=== PATIENT | male | born 2000 | race Hispanic/Latino ===

== ENCOUNTER 2018-07-08 19:24 | Emergency (ER) | payer BC ==
[2018-07-08 19:28] VITALS: BP 144/59; PULSE 80; RESP 18; TEMP 98.6; O2SAT 100
[2018-07-08] MEDS ORDERED: Lidocaine 2% MPF (5 ml) Inj ONE (19:38)
--- NOTE | 2018-07-08 19:40 | ED PDOC ---
Upper Extremity Pain/Injury Time Seen by Provider: 07/08/18 19:25 Chief Complaint (Nursing): Finger,Hand,&Wrist History Per: Patient History/Exam Limitations: no limitations Onset/Duration Of Symptoms: Mins (prior to arrival) Current Symptoms Are (Timing): Still Present Quality: "Pain" Additional Complaint(s): 18 year old male presents to the ED with right, 5th digit dislocation that occurred minutes prior to arrival. Patient reports he was playing football and while trying to catch the ball, injured his finger. He writes with his left hand but uses his right for all other activities. Offers no other complaints. PMD: Past Medical History Reviewed: Historical Data, Nursing Documentation, Vital Signs Vital Signs: Last Vital Signs Temp 98.6 F 07/08/18 19:25 Pulse 80 07/08/18 19:25 Resp 18 07/08/18 19:25 BP 144/59 L 07/08/18 19:25 Pulse Ox 100 07/08/18 19:25 - Medical History PMH: No Chronic Diseases - Surgical History Surgical History: No Surg Hx - Family History Family History: States: Unknown Family Hx - Home Medications Home Medications: Ambulatory Orders Medication Instructions Recorded Ibuprofen [Motrin] 600 mg PO Q8 PRN #21 tab 07/08/18 - Allergies Allergies/Adverse Reactions: Allergies Allergy/AdvReac Type Severity Reaction Status Date / Time nuts Allergy ANAPHYLAXIS Uncoded 07/08/18 19:25 Review of Systems ROS Statement: Except As Marked, All Systems Reviewed And Found Negative Musculoskeletal: Positive for: Hand Pain (right hand pain and finger dislocation ) Physical Exam - Reviewed Nursing Documentation Reviewed: Yes Vital Signs Reviewed: Yes - Physical Exam Appears: Positive for: Non-toxic, No Acute Distress Head Exam: Positive for: ATRAUMATIC, NORMAL INSPECTION, NORMOCEPHALIC Skin: Positive for: Normal Color, Warm, Dry Eye Exam: Positive for: EOMI, Normal appearance, PERRL Neck: Positive for: Normal, Painless ROM, Supple Cardiovascular/Chest: Positive for: Regular Rate, Rhythm. Negative for: Murmur Respiratory: Positive for: Normal Breath Sounds. Negative for: Wheezing, Respiratory Distress Extremity: Positive for: Other (apparent dislocation noted at middle phalanx of 5th digit in right hand) Neurologic/Psych: Positive for: Alert, Oriented (x 3). Negative for: Motor/ Sensory Deficits - ECG O2 Sat by Pulse Oximetry: 100 (RA) Pulse Ox Interpretation: Normal - Progress ED Course And Treament: XRY REVIEWED. DISLOCATION OF MIDDLE PHALANX REDUCED. SMALL AVULSION FX NOTED BASE OF MIDDLE PHALANX FIFTH DIGIT PLACED IN FINGER SPLINT MOTRIN 600 MG X 1 DOSE IN ED Medical Decision Making Medical Decision Makin:30 Right hand: fifth digit dislocation --Verbal consent given prior to procedure --Dislocation reduced in ER with visible improvement. Orders: --Right hand 5th digit x-ray --Motrin 600 mg PO Scribe Attestation: Documented by Lavonne Santo, acting as a scribe for Leanne Willingham PA-C Provider Scribe Attestation: All medical record entries made by the Scribe were at my direction and personally dictated by me. I have reviewed the chart and agree that the record accurately reflects my personal performance of the history, physical exam, medical decision making, and the department course for this patient. I have also personally directed, reviewed, and agree with the discharge instructions and disposition. Disposition - Clinical Impression Clinical Impression: Fracture of finger, middle phalanx, right, closed, Rupture of tendon of finger , Closed dislocation of phalanx of hand - Patient ED Disposition Is Patient to be Admitted: No - Disposition Referrals: Darenll Beckwith MD [Staff Provider] - Floyd Mercado MD [Medical Doctor] - Disposition: Routine/Home Disposition Time: 20:23 Condition: FAIR Additional Instructions: PLEASE KEEP FINGER SPLINT ON UNTIL SEEN BY HAND SURGEON Prescriptions: Ibuprofen [Motrin] 600 mg PO Q8 PRN #21 tab PRN Reason: Pain, Moderate (4-7) Instructions: Finger Dislocation (DC)
--- NOTE | 2018-07-09 09:27 | RAD ---
Date of service: 07/08/2018 PROCEDURE: Right small finger radiographs. HISTORY: FINGE RDISLOCATION COMPARISON: None. TECHNIQUE: AP radiograph of the right hand, as well as spot oblique and lateral images of small finger were obtained. FINDINGS: RIGHT SMALL FINGER: Likely small chip or avulsion fracture identified anterior to the head of the proximal phalanx right small finger. No dislocation. Remaining osseous elements appear unremarkable. JOINTS: Normal. SOFT TISSUES: Normal. OTHER FINDINGS: None. IMPRESSION: Likely small chip or avulsion fracture at the dorsal soft tissues superficial to the head of the proximal phalanx right small finger as discussed above. No dislocation. No large fracture identified.
== END 2018-07-08 20:45 | disposition home or self-care (01) ==
LOC: H.ER 19:24
DX: S62.632A Displaced fracture of distal phalanx of right middle finger, initial encounter for closed fracture (principal); S66.313A Strain of extensor muscle, fascia and tendon of left middle finger at wrist and hand level, initial encounter; W22.8XXA Striking against or struck by other objects, initial encounter; Y92.321 Football field as the place of occurrence of the external cause